=== PATIENT | male | born 1970 | race African-American/Black ===

== ENCOUNTER 2018-07-14 21:33 | Emergency (ER) | payer SELFPAY ==
[~2018-07-14] VITALS: Ht 188 cm; Wt 99.8 kg
[2018-07-14 21:54] VITALS: BP 113/78
[2018-07-14] MEDS ORDERED: ACETAMINOPHEN 500 MG TAB PO ONE (22:45)
== END 2018-07-14 23:40 | disposition home or self-care (01) ==
LOC: ER 21:36
DX: S52.541A Smith's fracture of right radius, initial encounter for closed fracture (principal); S52.611A Displaced fracture of right ulna styloid process, initial encounter for closed fracture; S62.316A Displaced fracture of base of fifth metacarpal bone, right hand, initial encounter for closed fracture; W10.9XXA Fall (on) (from) unspecified stairs and steps, initial encounter; Y93.89 Activity, other specified; Y99.8 Other external cause status; Y92.89 Other specified places as the place of occurrence of the external cause
CPT/HCPCS: 29125; 73110